=== PATIENT | female | born 1955 | race Caucasian/White ===

== ENCOUNTER → 2016-08-09 | Outpatient (CLI) | payer BC ==
[2016-08-09 10:42] LABS: HEMOGLOBIN 14.4 gm/dl (12.3-15.3); RED BLOOD COUNT 5.26 M/UL (4.00-5.10); WHITE BLOOD COUNT 4.2 K/UL (4.5-11.0)
[2016-08-09 11:06] LABS: BUN/CREATININE RATIO 34 (0-10)
== END ==
LOC: LAB 10:00
PROVIDERS: Internal Medicine
DX: J45.909 Unspecified asthma, uncomplicated (principal); E03.9 Hypothyroidism, unspecified; R73.01 Impaired fasting glucose; Z79.899 Other long term (current) drug therapy
CPT/HCPCS: 36415; 80053; 80061; 83036; 84443; 85025

== ENCOUNTER → 2021-07-18 | Outpatient (CLI) | payer MEDICARE ==
[2021-07-18 10:36] LABS: HEMOGLOBIN 15.8 gm/dl (12.3-15.3); RED BLOOD COUNT 5.4 M/UL (4.00-5.10); WHITE BLOOD COUNT 6.4 K/UL (4.5-11.0)
[2021-07-18 11:15] LABS: BUN/CREATININE RATIO 33 (0-10)
== END ==
LOC: LAB 10:17
PROVIDERS: Internal Medicine
DX: E78.49 Other hyperlipidemia (principal)
CPT/HCPCS: 80048; 80061; 80076; 84443; 85025

== ENCOUNTER → 2021-08-07 | Day surgery (SDC) | payer MEDICARE, BC ==
[~2021-08-07] MED LIST: CYCLOBENZAPRINE10 MG PO; DIPROSONE 0.05%15 GM EXT; DUPIXENT P300 MG/2 M SQ; HYGROTON TAB 2525 MG PO; LEVOTHYROXINE100 MCG PO; MONTELUKAST SOD10 MG PO; NABUMETONE750 MG PO; OMEPRAZOLE20 MG PO; SERTRALINE HCL50 MG PO
== END | disposition home or self-care (01) ==
LOC: OR 06:54
DX: K57.30 Diverticulosis of large intestine without perforation or abscess without bleeding (principal); K31.9 Disease of stomach and duodenum, unspecified; K29.70 Gastritis, unspecified, without bleeding; K44.9 Diaphragmatic hernia without obstruction or gangrene; K21.9 Gastro-esophageal reflux disease without esophagitis; I10 Essential (primary) hypertension; E03.9 Hypothyroidism, unspecified; R73.03 Prediabetes; Z90.49 Acquired absence of other specified parts of digestive tract; Z88.1 Allergy status to other antibiotic agents; Z88.0 Allergy status to penicillin; Z88.2 Allergy status to sulfonamides; Z20.822 Contact with and (suspected) exposure to COVID-19
CPT/HCPCS: J2704; J7030

== ENCOUNTER → 2021-10-27 | Outpatient (CLI) | payer MEDICARE, BC | LOC: KOH-I 10:12 | DX: M54.50 Low back pain, unspecified (principal); M25.552 Pain in left hip; R29.898 Other symptoms and signs involving the musculoskeletal system; M48.07 Spinal stenosis, lumbosacral region | CPT/HCPCS: 72100 ==